=== PATIENT | male | born 1955 | race Caucasian/White ===

== ENCOUNTER → 2020-08-18 10:02 | Outpatient (BNVA) | payer MEDICARE, OTHER, SELFPAY | PROVIDERS: Family Provider Family Medicine; PCP Family Medicine; Visit Provider Nurse Practitioner Family | DX: J06.9 Acute upper respiratory infection, unspecified (principal); Z20.828 Contact with and (suspected) exposure to other viral communicable diseases | CPT/HCPCS: 87635 ==

== ENCOUNTER 2024-05-12 16:34 | Emergency (ER) | payer MEDICARE, OTHER, SELFPAY ==
[2024-05-12 16:53] VITALS: BP 126/76; PULSE 68; RESP 16; TEMP 36.7; O2SAT 98; BMI 30.8
--- NOTE | 2024-05-12 19:51 | W.ED.SKABFB ---
HPI - Skin/Abscess/Foreign Bdy General: Chief complaint: Skin/Abscess/Foreign Body Stated complaint: piece of hearing aid stuck in left ear Time Seen by Provider: 05/12/24 16:47 History of Present Illness: Patient is a 68-year-old man presents to the emergency department with foreign body in the left ear. Patient reports that he is hearing aid broke and there is a piece embedded inside the ear canal. He attempted to remove it at home but was afraid that he was pushing it further in. He denies pain Related Data Allergies Allergy/AdvReac Type Severity Reaction Status Date / Time budesonide [From Pulmicort] Allergy itch Verified 08/18/20 09:16 Review of Systems General: Reports: 10 or more systems reviewed and unremarkable except in HPI and below Physical Exam Const: COMMON NORMALS: no acute distress GENERAL APPEARANCE: cooperative ORIENTATION/CONSCIOUSNESS: Yes awake HENMT: COMMON NORMALS: normocephalic, atraumatic and external ears normal HEAD & SCALP: normocephalic and atraumatic FACE & SINUS: normal facial exam EXTERNAL EAR: Yes external ears normal EXTERNAL AUDITORY CANAL: Abnormal EAC present EAC laterality: left Details: foreign body MOUTH: Normal oral and palatal mucosa present THROAT: posterior oropharynx normal Procedures Foreign Body Removal Time Out Performed: yes Site: left and ear Description of foreign body: other (Hearing aid) Technique: manual removal Confirmed by:: direct visualization Complications: none Post-procedure exam: awake, alert Neurovascular: other (Unchanged from baseline) Course Vital Signs: Vital signs: Vital Signs Temperature 98.1 F 05/12/24 16:53 Pulse Rate 63 05/12/24 19:57 Respiratory Rate 16 05/12/24 16:53 Blood Pressure 138/79 05/12/24 19:57 Pulse Oximetry 98 05/12/24 19:57 Oxygen Delivery Me thod Room Air 05/12/24 16:53 MDM - Skin/Abscess/Foreign Bdy Medicial Decision Making Patient was evaluated in the emergency department for foreign body in the left ear. I was able to remove the foreign body using forceps. It was uncomplicated and did not require any sedation. The procedure was uncomplicated. Patient's left happy No radiology studies performed this visit Discharge Plan Discharge Patient Disposition: Home Clinical Impression: Foreign body in ear Condition: Stable Discharge Orders: Discharge ED (Routine); Ordered 05/12/24 Ordered By: Lester Vargas Referrals: Wilson Mora MD [Primary Care Provider] - Discharge Diet: Advance as tolerated Discharge Activity: Resume usual activity Patient Instructions: Pain Management Coding Level of Care Code ED Reimbursement Specialist for Leonard Collado
[2024-05-12 19:57] VITALS: BP 138/79; PULSE 63; O2SAT 98
== END 2024-05-12 19:58 | disposition home or self-care (01) ==
PROVIDERS: Emergency Provider Nurse Practitioner; Family Provider Family Medicine; PCP Family Medicine
DX: T16.1XXA Foreign body in right ear, initial encounter (principal); W44.G1XA Audio device entering into or through a natural orifice, initial encounter
CPT/HCPCS: 99282

== ENCOUNTER 2024-11-14 08:23 | Outpatient (CLI) | payer MEDICARE, SELFPAY ==
--- NOTE | 2024-11-14 08:27 | ECG_ITS ---
iCrossing Test Date: 2024-11-14 Pat Name: Subhash Bailey Department: Room: Gender: Male Color Maker: : 1955 Requested By: Noman Navas Order Number: [id number] Gia MD: Stefan Encinas M.D. Interpretive Statements Lung unchanged pre/post procedure; Intraprocedure shortess of breath; Symptoms resoled by discharge PROCEDURE: At the baseline, the EKG revealed normal sinus rhythm with a normal ST Ts. The baseline heart was 63 bpm with a blood pressue of 119 or 77 mm of Hg Lexiscan was infused over a period of 20 seconds. A total of 0.4 milligrams of Lexiscan was infused. The stress phase was continued for a total of 5 minutes. Heart rate at the end of the stress phase was 63 bpm with a blood pressure 115/72 mm of Hg. The EKG at the peak infusion revealed no significant changes. Sestamibi was injected 20 seconds after the Lexiscan infusion. Heart rate at the end of the recovery phase was 62 bpm with a blood pressure of 114/71 mm of Hg. CONCLUSION: 1. No significant EKG changes with the LexiScan infusion 2. No LexiScan induced chest pain or cardiac arrhythmia 3. Normal blood pressure and heart rate response 4. Sestamibi/sestamibi perfusion scan pending; see separate report. Electronically Signed On 11-15-2024 17:29:11 CDT by Stefan Encinas M.D. [email or web address]
--- NOTE | 2024-11-14 08:27 | NMCV_ITS ---
NM jf perf SPECT r/s* [id number] Subhash Bailey Age: 69 Gender: M : 1955 Exam Date: 11/14/2024 10:13 Ordering Phys: Noman Mendez MD Technologist: JOSÉ MIGUEL Butts Exam Location: [facility] Indications: cp STRESS TEST Please see separate stress test report in [facility] for full findings IMAGE PROTOCOL Rest/Stress 1 Lexiscan Day Radiopharmaceutical Dose (mCi) Administration Site Administered by Rest: Tc-99m 10.9 IV JOSÉ MIGUEL Hull Sestamibi Stress:Tc-99m 33 IV JOSÉ MIGUEL Butts Sestamijhonny Rest: 14-Nov-2024 60 Discovery 630 Stress: 14-Nov-2024 30 Discovery 630 0.4mg Lexiscan. Images obtained in supine and prone position. SPECT RESULTS Technical Quality: Good Raw Data Analysis: Normal Image Corrections: No attenuation or motion correction applied Summed Stress Score: 7 Summed Rest Score: 13 Summed Difference Score: 1 PERFUSION FINDINGS Moderate area of moderately decreased tracer uptake involving the inferior and mid inferolateral segments with slight reversibility of the basal inferior segment FUNCTIONAL RESULTS (calculated via Gated SPECT) Stress Image LV EF (%): 73 Stress EDV (mL):75 TID: 0.92 Stress ESV (mL):20 FUNCTIONAL FINDINGS: Segmental wall motion analysis revealing no gross wall motion abnormalities IMPRESSIONS 1. Myocardial perfusion imaging revealing moderate area of minimal to moderate decrease tracer uptake involving the inferior and mid inferolateral segments with slight reversibility in the basal inferior segment suggesting myocardial scarring in the distribution of the right coronary artery/left circumflex artery with a small area jason-infarction ischemia. 2. Normal LV ejection fraction of 73%. 3. LV wall motion analysis revealing no gross wall motion abnormalities. 4. Normal LV volume. Compared to the study from 07/06/2018, the small area of jason-infarct ischemia may be new. Clinical correlation is recommended. Dr Stefan Encinas MD FACC (Electronically Signed) Final Date: 14 November 2024 12:38 S
[2024-11-14 08:30] VITALS: BMI 29.2
[2024-11-14] MEDS: regadenoson 0.4 Mg/5 ml Syringe IVP (09:56)
[2024-11-14 10:07] VITALS: BP 114/71; PULSE 62
== END 2024-11-14 08:24 | disposition home or self-care (01) ==
LOC: CDL 08:26
PROVIDERS: PCP Family Medicine; Visit Provider Family Medicine
DX: I20.9 Angina pectoris, unspecified (principal); R93.1 Abnormal findings on diagnostic imaging of heart and coronary circulation
CPT/HCPCS: 36415; 78452; 93017; 96374; A9500; J2785

== ENCOUNTER → 2024-12-04 09:57 | Outpatient (BNVA) | payer MEDICARE, SELFPAY | PROVIDERS: PCP Family Medicine; Visit Provider Internal Medicine Cardiovascular Disease | DX: R07.9 Chest pain, unspecified (principal); I10 Essential (primary) hypertension; R94.39 Abnormal result of other cardiovascular function study | CPT/HCPCS: 36415; 80048; 85025; 85610; 99204 ==

== ENCOUNTER 2024-12-12 07:11 | Outpatient (CLI) | payer MEDICARE, SELFPAY ==
[2024-12-12] VITALS (14 sets, daily range): BP systolic 92–123; BP diastolic 55–73; PULSE 39–65; RESP 13–23; TEMP 36.4; O2SAT 98
--- NOTE | 2024-12-12 07:30 | XACV_ITS ---
Exam Room: 2 Ht: 188 cm Wt: 106 kg BSA: 2.38 m2 Gender: Male : 1955 Any Known Allergies: Other Exam Priority: Routine Procedure(s): Procedure Description: Diagnostic procedure Procedure Description: PCI procedure Procedure Description: Left Heart Catheterization Procedure Description: Left ventriculography Procedure Description: Drug Eluting Coronary Stent Procedure Description: PTCA Procedure Description: Miscellaneous Procedure Description: ACT Procedure Description: Coronary Angiography Donnell GREGORY; Diagnostic Cath Status: Elective Diagnostic Findings * Left Main has no disease. * Circumflex has no disease. * Right Coronary Artery has no disease. * Distal Left Anterior Descending: significant 75% stenosis, MIKAYLA: 3 flow. * 1st Diagonal: obstructive 70% stenosis, MIKAYLA: 3 flow. * Coronary angiography shows right dominance. * Idication for the exam: Typical angina despite of optimization of medicine, abnormal stress test. PCI Status: Elective Interventional Findings * 1st Diagonal: 70% stenosis treated with a Balloon, MDT R CARRIE 4.0X22 EWELINA, and MDT RAYSHAWN EUPHORA RX [id number] BALLOON. 0% residual stenosis, MIKAYLA: 3 flow. Conclusions 1. There is significant coronary artery disease with one vessel disease. 2. All mcneill are normal. 3. Normal left ventricular systolic function. Ejection fraction of 60%. 4. 1st Diagonal was treated with a Balloon, Drug Eluting Stent, and Balloon. Recommendations * 1-Return to inpatient for close monitoring and routine cath care 2-Risk factor modification for secondary prevention 3-Statin and aspirin 81 mg life-long, if tolerated 4-Patient was pre-loaded with 600 mg of Plavix, continue Plavix 75mg p.o. daily for at least one year. We will assess at the end of one year again to continue if further or not 5-Continue optimal medical management 6-Follow up with Dr. Jacobo in four weeks and your primary care in 10 days. Diagnostic RX Recommendation: PCI w/o planned CABG Ventriculography Ejection Fraction: 60.0 % Pressures Phase:Rest AO : 93 / 60 ( 75 ) @ 10:41:00 AM 82 / 64 ( 73 ) @ 10:42:00 AM 92 / 35 ( 56 ) @ 11:21:00 AM LV : 102 / 15 / 28 @ 11:20:00 AM 95 / 14 / 24 @ 11:21:00 AM Clinical Evaluation EBL: 5mL-10mL Procedural Details Procedure Consent Obtained. Pre-Procedure Time Out. Identified patient by full name and date of as verbalized by the patient/guarantor. Does the consent match the physician's order: Yes. Accurate & Complete Informed Consent: Yes. Inpatient/Outpatient History & Physical on Chart: Yes. If H&P is completed, is and addenduem needed: No; If yes, is the addendum complete: N/A. Visualize and Verify Site with Patient/Guarantor: N/A. Relevant Radiology Images available: Yes. Pre-op teaching completed and patient verbalized understanding. The risks, benefits, and alternatives of sedation and/or procedure were discussed by physician. The patient agrees to continue. Procedure started. Current Diagnosis : Chest Pain. [facility] Clinical Fraility Score: 3: Managing Well. Solution Design Engineer Indications: Suspected CAD. Chest Pain Symptom Assessment: Typical Angina Symptoms. Correct patient, site and procedure confirmed by cath team. Current diagnosis: Chest Pain. PERRLA. Strong, equal hand operations officer bilaterally. Lungs clear x 5 lobes. IV Site on Arrival: 18 gauge in the left anticubital. IV Fluids: 0.9% NaCl at KVO. 0 mL infused prior to medical lab assistant. Pre Procedural Pulses: bilateral dorsalis pedis was 3+. Pre Procedural Pulses: bilateral posterior tibial was 3+. Pre Procedural Pulses: bilateral radial was 3+. Oxygen started at 2liters/min via nasal canula. right groin was prepped with chloroprep then draped in the usual sterile fashion. right radial was prepped with chloroprep then draped in the usual sterile fashion. Baseline sample Acquired. HR: 44 BPM. A 20 gauge IV was started in the left forearm using aseptic technique. Physician arrived. Physician scrubbed in. Immediate Pre-Procedure Time Out. Correct Patient: Yes; Correct Procedure: Yes; Correct Site: Yes; Correct Patient Position: Yes; Correct Supplies: Yes; Dried Flammable Prep: Yes; Blood Products Available: N/A;. Lidocaine 1% infiltrated to the right radial. Arterial access obtained. Wire unable to advance. Wire and needle out. Lidocaine 1% infiltrated to the right radial. Arterial access obtained. A 5 macedonian Won catheter in over wire. Multiple views taken of right coronary artery. Catheter redirected to the LCA. Physician review of cine films. Catheter removed over the exchange wire. 6 macedonian XB 3 guide catheter was inserted over the wire. Runthrough guidewire was advanced through the guide catheter to lesion in the diaganol. Inflation number : 1 A AB TREK 2.50X12 RX BALLOON was prepped and advanced across the 1st Diag , then inflated to 12 GARY for 0:18 seconds. Inflation number: 2 The AB TREK 2.50X12 RX BALLOON was reinflated across the 1st Diag, to 10 GARY for 0:13 seconds. Inflation number: 3 The AB TREK 2.50X12 RX BALLOON was reinflated across the 1st Diag, to 12 GARY for 0:14 seconds. Balloon out. Inflation Number : 4 Eloise De Leon CARRIE 4.0X22 EWELINA -Lot Number# _[id number] EXP: 06/08/2027 was prepped and advanced across the 1st Diag. The stent was deployed at 12 GARY for 0:28 seconds. Stent balloon out over wire. Inflation number : 5 A MDT NC EUPHORA RX [id number] BALLOON was prepped and advanced across the 1st Diag , then inflated to 10 GARY for 0:14 seconds. Inflation number: 6 The MDT NC EUPHORA RX [id number] BALLOON was reinflated across the 1st Diag, to 12 GARY for 0:15 seconds. Inflation number: 7 The MDT NC EUPHORA RX [id number] BALLOON was reinflated across the 1st Diag, to 12 GARY for 0:16 seconds. Balloon out. Wire redirected to the distal LAD. Inflation number: 1 The AB TREK 2.50X12 RX BALLOON was reinflated across the Dist LAD, to 12 GARY for 0:20 seconds. Inflation number: 2 The AB TREK 2.50X12 RX BALLOON was reinflated across the Dist LAD, to 12 GARY for 0:19 seconds. Balloon out. Wire out. Results checked. Guide catheter out. A 5 macedonian Angled Pig catheter in over wire. EDP Sample taken: LV 102/15,28; HR: 43 BPM; SpO2: 99%. LV gram performed in INIGUEZ @ 10 mL/second for a total of 30 mL. EDP Sample taken: LV 95/14,24; HR: 56 BPM; SpO2: 97%. Pullback taken: LV Off; AO Off; Mean: , Peak to Peak: , SEP: ; HR: 48 BPM; SpO2: 90%. Catheter removed over the exchange wire. ACT drawn. Results 242 seconds. Therapeutic limits - pre-heparin administration 90-150 seconds and monitoring heparin during a vascular procedure >250 seconds. A TR Band was successful obtaining hemostatsis at the Right Radial artery insertion site. Vital chart was stopped. Post Procedure: Pulses reassessed and unchanged. PERRLA. Strong, equal hand operations officer bilaterally. No VTE prophylaxis required. Medication's Wasted: Lidocaine 1% = 18 mg. Medication's Wasted: Other = Fentanyl 50 mcg. Total IV fluids: 300 mL. Post-op diagnosis: Stent to Diag. Complications: None. Estimated blood loss: 5mL-10mL. Responsiveness - Normal response to verbal stimuli; alert and oriented, PERRLA. Airway - Unaffected, no intervention required; spontaneous ventilation. Circulation: W/N/L, pulses unchanged. Nausea/Vomiting: No. Procedure completed. Patient transferred by wheelchair to 1st floor. Access Site Site: Right Radial artery Sheath Size: 6 Fr Hemostasis Method: TR Band Hemostasis Success: Successful Procedure Medications Start: 9:30 AM Stop: 9:30 AM Medication: Versed 1 mg and Fentanyl 25 mcg Amount: 1 Route: I.V. Start: 9:33 AM Stop: 9:33 AM Medication: Nitrogylcerin Amount: 50 mcg Route: S.Q. Start: 9:38 AM Stop: 9:38 AM Medication: Nitrogylcerin Amount: 200 mcg Route: I.A. Start: 9:39 AM Stop: 9:39 AM Medication: 0.9% Saline Amount: 250 ml Route: I.V. bolus Start: 9:48 AM Stop: 9:48 AM Medication: Plavix Amount: 600 mg Route: P.O. Start: 9:52 AM Stop: 9:52 AM Medication: Angiomax (5mg/mL) Amount: 16 ml Route: I.V. bolus Start: 9:55 AM Stop: 9:55 AM Medication: Angiomax (5mg/mL) Amount: 37.1 ml/hr Route: I.V. drip Start: 10:05 AM Stop: 10:05 AM Medication: Fentanyl Amount: 25 mcg Route: I.V. Start: 10:15 AM Stop: 10:15 AM Medication: Versed Amount: 1 mg Route: I.V. I, the attending physician, have reviewed and verified all procedure medications. Yes, all medications given per verbal order History/Risk Factors Hypertension: Yes Dyslipidemia: No Peripheral Arterial Disease (PAD): No Myocardial Infarction (GA): No Obesity: No Renal Disease: No Tobacco Use: Former Prior Interventions PCI: No CABG: No Valve Surgery: No Report Signatures Finalized by Rochelle Jacobo MD on 12/23/2024 05:48 PM
[2024-12-12] MEDS: aspirin 325 mg Tablet PO (08:03)
[2024-12-12] MEDS: diphenhydrAMINE 50 mg Capsule PO (08:03)
--- NOTE | 2024-12-12 08:52 | W.PM.OPSUD ---
Surgery/Procedure H&P Update DATE OF PROCEDURE: December 12, 2024 DATE H&P PERFORMED: 12/12/24 H&P UPDATE INFORMATION: I have reviewed H&P completed within last 30 days, I have examined patient prior to procedure and No changes to prior documentation PREOP DIAGNOSIS: ABN STRESS TEST, CHEST PAIN PRIMARY INDICATION FOR PROCEDURE: Abnormal stress test chest pain shortness of breath thought to be angina equivalent PLANNED PROCEDURE: Operation Date: 12/12/24 08:30 Proposed Procedures p Cardiac Catheterization - C w/wo LV & Coros(Left) - Rochelle Jacobo MD PATIENT REASSESSED PRIOR TO SEDATION, WITH NO CHANGE NOTED: Yes PHYSICAL EXAM: alert, oriented x 3, clear to auscultation bilaterally, regular rate & rhythm and operative site marked OTHER PERTINENT EXAM FINDINGS: All risk-benefit and already for the procedure has been explained to the patient. Patient understand 2% risk of stroke major bleed. Patient has stent 5 to 6% risk of minor bleeding bruising infection hematoma pseudoaneurysm contrast induced nephropathy. Patient agrees to it and would like to proceed with it. Patient understand 5 to 6% risk of urgent emergent vascular or bypass surgery. Patient understood and would like to proceed with it. AIRWAY EVAL/ANESTHESIA PLAN: ASA II, Risks, benefits & alternatives of sedation and/or procedure discussed and Patient agrees to continue as planned
--- NOTE | 2024-12-12 10:36 | PM.PROC ---
Procedure Note: Date of procedure: 12/12/24 Pre-procedure diagnosis: Abnormal stress test, chest pain, shortness Procedure: Left heart cath was performed: Separate ostium LAD has luminal irregularity with distal 80% stenosis First diagonal branch is moderate size and long vessel with mid 70 to 80% stenosis Left circumflex is nondominant but large vessel with luminal irregularity RCA is a large-caliber vessel with luminal irregularity it is a dominant vessel PCI to diagonal with drug-eluting stent postdilated with noncompliant balloon Balloon angioplasty to distal LAD. Excellent angiographic result with MIKAYLA-3 flow noted at the end of the case, no complication Patient was given Angiomax due to alpha-gal allergy Patient was loaded with 600 mg of Plavix and 325 mg of aspirin Continue dual antiplatelet therapy for at least 1 year Increase statin to 80 mg atorvastatin. Wristband as per protocol Full note to be dictated Coding Level of Care Code Acute Code for Leonard Fwjosiah
[2024-12-12] MEDS: atorvastatin 40 mg Tablet 80 MG PO (20:45)
[2024-12-13] VITALS (8 sets, daily range): BP systolic 113–137; BP diastolic 71–82; PULSE 53–71; RESP 14–22; TEMP 36.4–37.1; O2SAT 92–96
[2024-12-13 04:24] LABS: Basophils % 0.3 %; Eosinophils # 0.2 10^3/uL (0.0-0.8); Eosinophils % 2.9 %; Hematocrit 39.5 % (37-53); Lymphocytes # 1.6 10^3/uL (0.8-4.8); Lymphocytes % 26.1 %; Mean Corpuscular HGB Conc 33.9 g/dL (30-55); Mean Corpuscular Hemoglobin 30.7 pg (27-33); Mean Corpuscular Volume 90.6 fl (82-101); Mean Platelet Volume 11.1 fL (7.4-10.4); Monocytes # 0.4 10^3/uL (0.2-0.9); Monocytes % 7.4 %; Neutrophils # 3.74 10^3/uL (1.8-7.7); Neutrophils % 63.1 %; Nucleated Red Blood Cells % 0 %; Platelet Count 187 10^3/cmm (157-399); Red Blood Count 4.36 10^6/uL (3.85-5.65); Red Cell Distribution Width 12.8 % (12.1-15.1); White Blood Count 5.93 10^3/uL (3.29-11.43)
[2024-12-13 04:42] LABS: Anion Gap 13.9 (5-19); Blood Urea Nitrogen 23 mg/dL (8-23); Calcium 9.3 mg/dL (8.5-10.5); Carbon Dioxide 26 mmol/L (22-29); Chloride 105 mmol/L (98-107); Creatinine Clr Calc Pharmacy 55.7669; Glomerular Filtration Rate 42.9 mL/min (90-130); Glucose 89 mg/dL (65-115); Osmolality Calculated 295 mOsm/kg (285-295); Potassium 3.9 mmol/L (3.5-5.1); Sodium 141 mmol/L (136-145)
[2024-12-13] MEDS: sodium chloride 0.9% 1,000 ML 100 ML IV ×2 (08:40→18:40)
[2024-12-13] MEDS: clopidogrel 75 mg Tablet PO (08:41)
[2024-12-13] MEDS: aspirin 81 mg EC Tablet PO (08:41)
[2024-12-13] MEDS: amlodipine 10 mg Tablet PO (08:41)
--- NOTE | 2024-12-13 08:45 | P.PN_ITS ---
<Statement entered by Rochelle Jacobo MD - 12/13/24 21:09> Patient was evaluated and cared for in conjunction with an advanced practice practitioner. I personally examined the patient and reviewed the chart and all pertinent data including imaging, telemetry, and laboratory results. I discussed the patient in detail with the advanced practice practitioner. Please see their note for complete H&P testing result and agreed upon plan of care for the patient. Patient is status post PCI, he bumped up his creatinine most likely due to contrast-induced nephropathy GENERAL: Patient is alert, awake and oriented x3. HEART: Regular S1 and S2. No murmur, rub or gallop. LUNGS: Clear to auscultate bilaterally. CENTRAL NERVOUS SYSTEM: Grossly nonfocal. EXTREMITIES: Lower extremities with out edema bilaterally. Assessment and plan Contrast-induced nephropathy with worsening of renal function status post PCI Unstable angina abnormal stress test status post PCI to diagonal branch and balloon angioplasty to distal LAD Bradycardia Hypertension Continue dual antiplatelet therapy continue aspirin statin No beta-usman because of bradycardia IV fluid 100 mL/h normal saline for contrast-induced nephropathy check BMP in the morning Subjective 2 Subjective: Yesterday he underwent coronary angiogram with stents to the diagonal and balloon angioplasty to the distal LAD. No complications with right radial cath site. He has CIERRA this morning, baseline creatinine was 1.2, he is up to 1.6 this morning. Will restart IV fluids at 100 mL/h for the next 24 hours and recheck labs in the morning. Heart rates improved this morning into the upper 50s to 60s, blood pressure stable. Vitals/I&O/Wt Last Vital Signs Temp 98.8 F 12/13/24 04:21 Pulse 57 L 12/13/24 04:21 Resp 14 12/13/24 04:21 BP 134/78 12/13/24 04:21 Pulse Ox 96 12/13/24 04:21 O2 Del Method Room Air 12/13/24 04:21 Weight last 48 hrs Weight 234 lb Data 12/13/24 04:07 12/13/24 04:07 A&P Assessment and plan (1) Abnormal stress test: (2) Chest pain: (3) Coronary artery disease: (4) Hypertension: (5) CIERRA (acute kidney injury): Plan Continue aspirin, Plavix, amlodipine, atorvastatin. Continue IV fluid for hydration the next 24 hours. Recheck labs in the morning. He has home medications of benazepril and hydrochlorothiazide, will discontinue these for now-can be restarted by PCP if needed. If blood pressure is uncontrolled, ordered hydralazine 10 mg IV every 4 hours for blood pressure greater than 160 systolic. No chest pain or shortness of breath overnight or today. Right radial site looks good without hematoma. Plan for discharge tomorrow if renal function normalized. PDMP PDMP Reviewed: Not Reviewed Attestations 2 Medical Necessity Statement*: poss DC tomorrow Coding Level of Care Code Acute Code for Chg Fwd Diagnoses Abnormal stress test R94.39 Chest pain R07.9 Coronary artery disease I25.10 Hypertension I10 CIERRA (acute kidney injury) N17.9
[2024-12-13] MEDS: atorvastatin 40 mg Tablet 80 MG PO (20:54)
[2024-12-13] MEDS: temazepam 15 mg Capsule PO (21:17)
[2024-12-14 00:01] VITALS: BP 138/78; PULSE 59; RESP 17; TEMP 37.1; O2SAT 95
[2024-12-14] MEDS: sodium chloride 0.9% 1,000 ML 100 ML IV (03:15)
[2024-12-14 04:52] LABS: Basophils % 0.3 %; Eosinophils # 0.3 10^3/uL (0.0-0.8); Eosinophils % 4.2 %; Hematocrit 40.5 % (37-53); Lymphocytes # 1.4 10^3/uL (0.8-4.8); Lymphocytes % 23.9 %; Mean Corpuscular HGB Conc 33.8 g/dL (30-55); Mean Corpuscular Hemoglobin 30.9 pg (27-33); Mean Corpuscular Volume 91.2 fl (82-101); Mean Platelet Volume 11.3 fL (7.4-10.4); Monocytes # 0.5 10^3/uL (0.2-0.9); Monocytes % 7.8 %; Neutrophils # 3.76 10^3/uL (1.8-7.7); Neutrophils % 63.6 %; Nucleated Red Blood Cells % 0 %; Platelet Count 198 10^3/cmm (157-399); Red Blood Count 4.44 10^6/uL (3.85-5.65); White Blood Count 5.91 10^3/uL (3.29-11.43)
[2024-12-14 05:03] VITALS: BP 146/88; PULSE 88; RESP 22; TEMP 36.6; O2SAT 95
[2024-12-14 05:21] LABS: Anion Gap 13.9 (5-19); Blood Urea Nitrogen 19 mg/dL (8-23); Calcium 8.8 mg/dL (8.5-10.5); Carbon Dioxide 24 mmol/L (22-29); Chloride 107 mmol/L (98-107); Creatinine Clr Calc Pharmacy 63.7336; Glomerular Filtration Rate 50.1 mL/min (90-130); Glucose 92 mg/dL (65-115); Osmolality Calculated 294 mOsm/kg (285-295); Potassium 3.9 mmol/L (3.5-5.1); Sodium 141 mmol/L (136-145)
[2024-12-14 05:49] VITALS: PULSE 56
[2024-12-14] MEDS: amlodipine 10 mg Tablet PO (09:05)
[2024-12-14] MEDS: clopidogrel 75 mg Tablet PO (09:05)
[2024-12-14] MEDS: aspirin 81 mg EC Tablet PO (09:05)
--- NOTE | 2024-12-14 09:44 | P.DS_ITS ---
<Statement entered by Rochelle Jacobo MD - 12/14/24 19:20> Patient was evaluated and cared for in conjunction with an advanced practice practitioner. I personally examined the patient and reviewed the chart and all pertinent data including imaging, telemetry, and laboratory results. I discussed the patient in detail with the advanced practice practitioner. Please see their note for complete H&P testing result and agreed upon plan of care for the patient. Discharge Providers Date of Admission: 12/12/2024 Date of Discharge: December 14, 2024 Attending Provider at Admission: Rochelle Jacobo MD Attending Provider at Discharge: Rochelle Jacobo MD Primary Care Provider: Noman Mendez MD Diagnoses at Discharge Discharge Diagnosis (1) Abnormal stress test: Status: Acute (2) Chest pain: Status: Acute (3) Coronary artery disease: Status: Acute (4) Hypertension: Status: Acute (5) CIERRA (acute kidney injury): Status: Acute Reason for Visit Reason for Visit: R94.39 Brief History: The patient is a 69-year-old male presenting with an abnormal cardiac stress test along with chest pain. He reports a 6-month history of progressively worsening chest pain characterized by pressure in the chest region. This discomfort is accompanied by shortness of breath and has been linked to episodes of syncope without any preceding warning. Upon regaining consciousness, the patient experienced temporary visual disturbances. The patient denies dizziness but reports occasional irregular heartbeats observed on his home blood pressure device. No personal history of heart disease is acknowledged although there is a family history present on the maternal side. The patient is currently under treatment for essential hypertension using benazepril and amlodipine and has experienced variable control with these medications. Additional cardiac evaluation is pending following findings suggestive of myocardial impairment on recent diagnostic testing. Hospital Course Hospital Course He was brought in for coronary angiogram on 12/12/2024 finding significant distal LAD stenosis and first diagonal branch stenosis, left circumflex and RCA had luminal irregularities. He underwent balloon angioplasty of the distal LAD and EWELINA x 1 to the diagonal. He received Angiomax due to alpha-gal allergy. No complications with right radial cath site. He developed contrast-induced nephropathy, creatinine increased to 1.6 (baseline 1.2). He was kept in the hospital an additional day, received IV fluid all day yesterday and overnight. This morning creatinine down to 1.4. Will discontinue home medication of tam azepril and hydrochlorothiazide to prevent worsening of kidney function. Holding beta-usman due to sinus bradycardia, will order an event monitor 14 days to be placed at his follow-up visit. Currently has no indications for pacemaker placement. Continue aspirin, Plavix. Statin therapy was escalated to atorvastatin 80 mg daily. Will request that he has labs drawn at the hospital in 3 days to monitor creatinine closely. Follow-up with cardiology clinic in 7 to 10 days. Physical Exam Const: COMMON NORMALS: no acute distress and patient oriented x3 GENERAL APPEARANCE: cooperative ORIENTATION/CONSCIOUSNESS: Yes awake, Yes oriented to person, Yes oriented to place and Yes oriented to time Chest: COMMONS NORMALS: normal inspection of the chest and normal palpation of entire chest wall CHEST: Yes Symmetrical chest wall rise Resp: COMMON NORMALS: normal respiratory effort, No retractions, No use of accessory muscles and clear to auscultation bilaterally AUSCULTATION: clear to auscultation bilaterally Cardio: COMMON NORMALS: regular rate, regular rhythm, S1 normal heart sound present, S2 normal heart sound present, No gallops present (Cardio), No clicks present (Cardio), No murmurs present (Cardio) and No rub (Cardio) RATE: regular rate RHYTHM: regular rhythm HEART SOUNDS: S1 normal heart sound present and S2 normal heart sound present PERIPHERAL PULSES: radial pulses present positive right 2+ and femoral pulses present positive right 2+ Neuro: COMMON NORMALS: patient oriented x3 and moves all extremities SENSORIUM/ORIENTATION: Yes oriented to person, Yes oriented to place and Yes oriented to time Skin: WOUNDS: Yes surgical site (no hematoma palpable) Details: no odor Discharge Data Studies Completed and Pending Pending at discharge Category Date Time Status TRANSLATION DIRECTOR request for service Routine Exams 12/12/24 07:30 Taken Laboratory Results WBC 5.91 10^3/uL (3.29-11.43) 12/14/24 04:22 RBC 4.44 10^6/uL (3.85-5.65) 12/14/24 04:22 Hgb 13.70 g/dL (11.27-16.99) 12/14/24 04:22 Hct 40.5 % (37-53) 12/14/24 04:22 MCV 91.2 fl (82-101) 12/14/24 04:22 MCH 30.9 pg (27-33) 12/14/24 04:22 MCHC 33.8 g/dL (30-55) 12/14/24 04:22 RDW 13.0 % (12.1-15.1) 12/14/24 04:22 Plt Count 198 10^3/cmm (157-399) 12/14/24 04:22 MPV 11.3 fL (7.4-10.4) H 12/14/24 04:22 Neut % (Auto) 63.6 % 12/14/24 04:22 Lymph % (Auto) 23.9 % 12/14/24 04:22 [place] % (Auto) 7.8 % 12/14/24 04:22 Eos % (Auto) 4.2 % 12/14/24 04:22 Baso % (Auto) 0.3 % 12/14/24 04:22 Neut # (Auto) 3.76 10^3/uL (1.8-7.7) 12/14/24 04:22 Lymph # (Auto) 1.4 10^3/uL (0.8-4.8) 12/14/24 04:22 [place] # (Auto) 0.5 10^3/uL (0.2-0.9) 12/14/24 04:22 Eos # (Auto) 0.3 10^3/uL (0.0-0.8) 12/14/24 04:22 Baso # (Auto) 0.0 10^3/uL (0.0-0.1) 12/14/24 04:22 Nucleated RBC % (auto) 0 % 12/14/24 04:22 Nucleated RBCs # 0.0 /100WBC 12/14/24 04:22 Sodium 141 mmol/L (136-145) 12/14/24 04:22 Potassium 3.9 mmol/L (3.5-5.1) 12/14/24 04:22 Chloride 107 mmol/L (98-107) 12/14/24 04:22 Carbon Dioxide 24 mmol/L (22-29) 12/14/24 04:22 Anion Gap 13.9 (5-19) 12/14/24 04:22 BUN 19 mg/dL (8-23) 12/14/24 04:22 Creatinine 1.4 mg/dL (0.7-1.2) H 12/14/24 04:22 GFR Calculation 50.1 mL/min (90-130) L 12/14/24 04:22 Glucose 92 mg/dL (65-115) 12/14/24 04:22 Calculated Osmolality 294 mOsm/kg (285-295) 12/14/24 04:22 Calcium 8.8 mg/dL (8.5-10.5) 12/14/24 04:22 Vitals Last Vital Signs Temp 97.8 F 12/14/24 05:03 Pulse 56 L 12/14/24 05:49 Resp 22 H 12/14/24 05:03 BP 146/88 12/14/24 05:03 Pulse Ox 95 12/14/24 05:03 O2 Del Method Room Air 12/14/24 05:03 Discharge Plan Discharge Patient Disposition: Home Prescriptions: New atorvastatin 40 mg Tablet 80 mg PO BEDTIME Qty: 90 3RF clopidogrel 75 mg Tablet 75 mg PO DAILY Qty: 90 3RF aspirin 81 mg Tablet,Delayed Release (Dr/Ec) 81 mg PO DAILY Qty: 90 3RF Continued amlodipine 10 mg tablet 10 mg PO DAILY epinephrine [EpiPen] 0.3 mg/0.3 mL auto-injector 0.3 mg IM Q10M PRN (Reason: Allergic Reaction) Rx Instructions: for 2 doses hydroxyzine HCl 10 mg tablet 10 mg PO TID PRN (Reason: Itching) fluticasone propionate [Allergy Relief (fluticasone)] 50 mcg/actuation spray,suspension 2 spray intranasal DAILY PRN (Reason: Allergic Symptoms) Rx Instructions: administer into each nostril isosorbide mononitrate 30 mg tablet extended release 24 hr 30 mg PO DAILY Qty: 90 3RF nitroglycerin 0.4 mg tablet, sublingual 0.4 mg sublingual Q5M PRN (Reason: chest pain) Qty: 25 2RF Rx Instructions: do not exceed 3 doses per episode multivitamin Tablet 1 tab PO DAILY Vitamin B-12 25 mcg Tablet 25 mcg PO DAILY Apple Cider Vinegar Complex 300-8.3 mg Tablet 1 tab PO DAILY cholecalciferol (vitamin D3) [Vitamin D3] 50 mcg (2,000 unit) Capsule 50 mcg PO DAILY melatonin 3 mg Capsule 3 mg PO BEDTIME Held meloxicam 15 mg tablet 15 mg PO DAILY Hold Instructions: discuss at follow up appointment sildenafil [Viagra] 100 mg tablet 100 mg PO DAILY PRN (Reason: Sexual Activity) Hold Instructions: discuss at follow up visit Rx Instructions: administer 30 minutes to 4 hours before activity Discontinued hydrochlorothiazide 12.5 mg capsule 12.5 mg PO DAILY lovastatin 20 mg tablet 20 mg PO DAILY benazepril 10 mg tablet 10 mg PO DAILY Discharge Orders: Discharge Order (Routine); Ordered 12/14/24 Ordered By: Zeina Muller Other Ambulatory Orders: Basic Metabolic Panel (Routine) Timeframe: 3 Days Facility: [facility] - Location: Lab - Main Lab Ordered By: Zeina Muller MCT/Event Monitor 14 Days (Routine) Timeframe: 1 Week Facility: [facility] - Location: Radiology Ordered By: Zeina Muller Referrals: Bailey Silva NP [Nurse Practitioner, Cardiology] - 12/20/24 3:00 pm Noman Mendez MD [Primary Care Provider, Family Practice] - 12/19/24 4:15 pm Diet: Advance as tolerated Activity: Increase activity as tolerated Patient Instructions: Coronary Angioplasty (DC), Chest Pain Stoplight, Post Angiogram Home Care Instructions Activity Restrictions/Additional Instructions: No lifting over 5 pounds for the next 4 days. Stop benazepril and hydrochlorothiazide due to kidney function. Monitor blood pressure and keep a log at home, bring to your follow-up appointment on 12/20/2024. Come to the lab to have blood drawn in 3 days-come to the main entrance of the hospital and check in at registration desk. Cardiology clinic will call you with an appointment for event monitor-please remind them to use sensitive skin patches. Print Language: Montserratian Discharge Attestations Time Spent in Discharge Care*: less than 30 min Quality Metrics Clinical Quality Measures [ No reported AMI, CVA or VTE this stay] Coding Level of Care Code Acute Code for [facility] Fwd Diagnoses Abnormal stress test R94.39 Chest pain R07.9 Coronary artery disease I25.10 Hypertension I10 CIERRA (acute kidney injury) N17.9
[2024-12-14 09:51] VITALS: BP 127/76; PULSE 60; TEMP 36.5; O2SAT 97
--- NOTE | 2024-12-14 11:30 | PC.NURSE ---
discharge instructions given and explained.pt and spouse verb understanding of instructions.discharged via w/c to exit at this time.spouse to drive pt home
== END 2024-12-14 11:15 | disposition home or self-care (01) ==
LOC: CCL 07:17 → CSU 12-13 08:05
PROVIDERS: Nurse Practitioner Family; PCP Family Medicine; Visit Provider Internal Medicine Cardiovascular Disease
DX: I25.10 Atherosclerotic heart disease of native coronary artery without angina pectoris (principal); I10 Essential (primary) hypertension; Z87.891 Personal history of nicotine dependence; N17.9 Acute kidney failure, unspecified
CPT/HCPCS: 36415; 80048; 85025; 85347; 92920; 93458; 96367; 96374; 99152; 99153; C1725; C1769; C1874; C1887; C1894; C9600; J0583; J1644; J2250; J3010; J3490; J7030; J7050; J9999; Q0163; Q9967

== ENCOUNTER 2024-12-18 08:27 | Outpatient (CLI) | payer MEDICARE, SELFPAY ==
[2024-12-18 09:31] LABS: Anion Gap 17.2 (5-19); Blood Urea Nitrogen 25 mg/dL (8-23); Calcium 9.6 mg/dL (8.5-10.5); Carbon Dioxide 26 mmol/L (22-29); Chloride 100 mmol/L (98-107); Glomerular Filtration Rate 50.1 mL/min (90-130); Glucose 98 mg/dL (65-115); Osmolality Calculated 292 mOsm/kg (285-295); Potassium 4.2 mmol/L (3.5-5.1); Sodium 139 mmol/L (136-145)
== END 2024-12-18 08:28 | disposition home or self-care (01) ==
PROVIDERS: PCP Family Medicine; Visit Provider Nurse Practitioner Family
DX: I25.10 Atherosclerotic heart disease of native coronary artery without angina pectoris (principal); I10 Essential (primary) hypertension
CPT/HCPCS: 36415; 80048

== ENCOUNTER → 2024-12-20 14:35 | Outpatient (BNVA) | payer MEDICARE, SELFPAY | PROVIDERS: PCP Family Medicine; Visit Provider Nurse Practitioner Family | DX: I25.10 Atherosclerotic heart disease of native coronary artery without angina pectoris (principal); R07.9 Chest pain, unspecified; R94.39 Abnormal result of other cardiovascular function study; Z79.02 Long term (current) use of antithrombotics/antiplatelets; Z79.82 Long term (current) use of aspirin; Z95.5 Presence of coronary angioplasty implant and graft; Z87.891 Personal history of nicotine dependence; I10 Essential (primary) hypertension | CPT/HCPCS: 99213 ==

== ENCOUNTER 2025-01-14 08:44 | Outpatient (CLI) | payer MEDICARE, SELFPAY ==
--- NOTE | 2025-01-14 09:15 | USCV_ITS ---
Subhash Bailey Age: 69 Gender: M : 1955 Exam Date: 01/14/2025 09:18 Ordering Phys: Rochelle Jacobo MD ([email or web address]) Technologist: CHRISTINE Exam Location: [facility] [place] Indication: SOB, CP BP: 118 / 81 HR: 53 Rhythm: Sinus Technical Quality: Adequate MEASUREMENTS (Male / Female) Normal Values 2D ECHO LV Diastolic Diameter PLAX 4.5 cm 4.2 - 5.9 / 3.9 - 5.3 cm IVS Diastolic Thickness 1.2 cm 0.6 - 1.0 / 0.6 - 0.9 cm IVS Systolic Thickness 1.3 cm LVPW Diastolic Thickness 1.4 cm 0.6 - 1.0 / 0.6 - 0.9 cm LVPW Systolic Thickness 1.9 cm LVOT Diameter 2.0 cm LV Ejection Fraction 2D Teich 65.4 % LV Ejection Fraction MOD 4C 61.7 % LV Ejection Fraction MOD 2C 65.7 % LV Ejection Fraction 2C AL 67.3 % LA Diameter 3.5 cm RA Systolic Volume 4C AL 55.3 ml RA Systolic Volume 4C MOD 50.4 ml LA Sys Volume AL 58.7 cm cubed LA Sys Volume Index AL 25.0 cm cubed/m squared Aorta at Sinotubular Diameter 2.7 cm IVC Diameter 1.9 cm M-MODE LA Ao Ratio MM 1.7 AV Cusp Separation MM 1.6 cm DOPPLER AV Peak Velocity 138.0 cm/s LVOT Peak Velocity 94.0 cm/s AV Area Cont Eq vti 2.6 cm squared AV Area Cont Eq pk 2.2 cm squared MV Peak Velocity 79.0 cm/s MV Area PHT 3.2 cm squared Mitral E to A Ratio 0.8 TV Peak Velocity 164.5 cm/s TR Peak Velocity 250.0 cm/s TR Peak Gradient 25.0 mmHg TV Peak E Velocity 68.0 cm/s PV Peak Velocity 107.0 cm/s FINDINGS Left Ventricle Normal left ventricular size, systolic function and wall thickness, with no regional wall motion abnormalities. Left ventricular ejection fraction is estimated at 60 %. Grade I/IV diastolic dysfunction (abnormal relaxation filling pattern), normal to mildly elevated filling pressures. Right Ventricle The right ventricle is normal in size and function. Right Atrium The right atrium is normal in size. Left Atrium The left atrium is normal in size. Mitral Valve Structurally normal mitral valve without significant stenosis or prolapse. There is no mitral regurgitation. Aortic Valve Mild aortic valve calcification. No aortic valve stenosis. Trace aortic valve regurgitation. Tricuspid Valve Structurally normal tricuspid valve without significant stenosis or regurgitation. Pulmonary artery systolic pressure is normal. Pulmonic Valve Structurally normal pulmonic valve without significant stenosis. There is no pulmonic regurgitation. Pericardium Normal pericardium without effusion. Aorta Normal ascending aorta dimension. IVC The inferior vena cava appears normal. CONCLUSIONS Normal left ventricular size, systolic function and wall thickness, with no regional wall motion abnormalities. Left ventricular ejection fraction is estimated at 60 %. Grade I/IV diastolic dysfunction (abnormal relaxation filling pattern), normal to mildly elevated filling pressures. Mild aortic valve calcification. No aortic valve stenosis. Trace aortic valve regurgitation. There is no pericardial effusion. Right atrial pressure is around 5 mm of mercury. Rochelle Jacobo MD (Electronically Signed) Final Date: 05 February 2025 21:26 S
== END 2025-01-14 08:45 | disposition home or self-care (01) ==
LOC: RAD 08:46
PROVIDERS: PCP Family Medicine; Visit Provider Internal Medicine Cardiovascular Disease
DX: R06.02 Shortness of breath (principal); R07.9 Chest pain, unspecified; R93.1 Abnormal findings on diagnostic imaging of heart and coronary circulation; I35.8 Other nonrheumatic aortic valve disorders
CPT/HCPCS: 93306

== ENCOUNTER → 2025-02-27 15:34 | Outpatient (BNVA) | payer MEDICARE, SELFPAY | PROVIDERS: PCP Family Medicine; Visit Provider Internal Medicine Cardiovascular Disease | DX: R94.39 Abnormal result of other cardiovascular function study (principal); I25.10 Atherosclerotic heart disease of native coronary artery without angina pectoris; I49.3 Ventricular premature depolarization; I11.0 Hypertensive heart disease with heart failure; I50.30 Unspecified diastolic (congestive) heart failure; I35.8 Other nonrheumatic aortic valve disorders; Z79.02 Long term (current) use of antithrombotics/antiplatelets; Z79.82 Long term (current) use of aspirin; Z95.5 Presence of coronary angioplasty implant and graft | CPT/HCPCS: 99214 ==